=== PATIENT | male | born 1990 | race African-American/Black ===

== ENCOUNTER 2019-11-14 14:02 | Emergency (ER) | payer SELFPAY ==
[~2019-11-14] VITALS: Ht 172.7 cm; Wt 72.0 kg
[2019-11-14 14:21] VITALS: BP 130/76
== END 2019-11-14 17:49 | disposition left against medical advice (07) ==
LOC: ER 14:02
DX: M25.571 Pain in right ankle and joints of right foot (principal); Z53.21 Procedure and treatment not carried out due to patient leaving prior to being seen by health care provider